=== PATIENT | male | born 1990 | race Two or more races ===

== ENCOUNTER 2020-05-06 09:14 | Emergency (ER) | payer MEDICAID, OTHER ==
[~2020-05-06] VITALS: Ht 188 cm; Wt 73.5 kg
[2020-05-06] MEDS ORDERED: SODIUM CHLORIDE 0.9% 1,000 ML IV ONE (11:02)
[2020-05-06 11:16] LABS: Urine Bacteria NONE SEEN /hpf (None Seen); Urine Blood Negative /uL (Negative); Urine Mucus FEW (None Seen); Urine Specific Gravity 1.014 (1.001-1.035); Urine WBC 6 /hpf (0 - 3)
[2020-05-06 11:40] LABS: Amphetamine Screen, Urine NEGATIVE (NEGATIVE); Barbiturate Scree,Urine NEGATIVE (NEGATIVE); Benzodiazephine Screen, Urine NEGATIVE (NEGATIVE); Cannabinoid Screen, Urine NEGATIVE (NEGATIVE); Cocaine Screen, Urine NEGATIVE (NEGATIVE); Opiate Scree,Urine NEGATIVE (NEGATIVE); Phencyclidine Screen, Urine NEGATIVE (NEGATIVE)
[2020-05-06 11:46] LABS: Basophils # (auto) 0 10 ^3/uL (0-0.2); Basophils % (auto) 0.1 % (0.0-2.0); Eosinophils # (auto) 0 10 ^3/uL (0-0.8); Eosinophils % (auto) 0.2 % (0.0-7.0); Hematocrit 49.1 % (41.0-53.0); Hemoglobin 16.8 g/dL (13.5-17.5); Lymphocytes # (auto) 0.6 10 ^3/uL (0.4-5.4); Lymphocytes % (auto) 8.7 % (10.0-50.0); Mean Corpuscular Hemoglobin 33.7 pg (28.0-32.0); Mean Corpuscular Hgb Conc. 34.2 g/dL (32.0-36.0); Mean Corpuscular Volume 98.6 fL (80.0-100.0); Monocytes # (auto) 0.5 10 ^3/uL (0-1.3); Monocytes % (auto) 8.3 % (0.0-12.0); Neutrophils # (auto) 5.4 10 ^3/uL (1.6-8.6); Neutrophils % (auto) 82.7 % (37.0-80.0); Nucleated Red Blood Cells % 0.1 %; Platelet Count (auto) 146 10^3/uL (140-450); Red Blood Cells 4.98 10^6/uL (4.5-5.90); Red Cell Distribution Width 14.3 % (11.8-14.3); White Blood Cell 6.5 10^3/uL (4.4-10.8)
[2020-05-06 12:05] LABS: Calcium 9.1 mg/dL (8.5-10.1); Magnesium 2.2 mg/dL (1.6-2.6); Potassium 3.9 mmol/L (3.5-5.1)
[2020-05-06 12:10] LABS: Bilirubin, Total 0.9 mg/dL (0.2-1.0); Total Protein 7.8 g/dL (6.4-8.2)
[2020-05-06] MEDS ORDERED: NICOTINE 7MG/24HR TOPICAL PATCH TD ONE (21:30)
[2020-05-06] MEDS ORDERED: LORazepam 0.5 MG TAB PO ONE (21:30)
[2020-05-06] MEDS ORDERED: MULTIPLE VITAMIN TAB PO ONE (22:45)
[2020-05-07] MEDS ORDERED: QUEtiapine FUMARATE 25 MG TAB PO ONE
[2020-05-07] MEDS ORDERED: LORazepam 2MG/ML-1ML VIAL ONE ×2 (01:04→03:31)
[2020-05-07] MEDS ORDERED: diphenhdrAMINE HCL 50 MG/1 ML VL ONE ×2 (01:04→03:30)
[2020-05-07] MEDS ORDERED: diphenhdrAMINE HCL 50 MG/1 ML VL IV ONE (01:15)
[2020-05-07] MEDS ORDERED: LORazepam 2MG/ML-1ML VIAL IV ONE (01:15)
[2020-05-07] MEDS ORDERED: HALOPERIDOL LACTATE 5 MG/ML INJ VIAL ONE ×2 (01:56→03:31)
[2020-05-07] MEDS ORDERED: HALOPERIDOL LACTATE 5 MG/ML INJ VIAL IM ONE ×2 (02:15→03:45)
[2020-05-07] MEDS ORDERED: LORazepam 0.5 MG TAB PO ONE (03:00)
[2020-05-07] MEDS ORDERED: LORazepam 2MG/ML-1ML VIAL IM ONE (03:45)
[2020-05-07] MEDS ORDERED: diphenhdrAMINE HCL 50 MG/1 ML VL IM ONE (03:45)
[2020-05-07] MEDS ORDERED: THIAMINE HCL 100 MG TAB PO ONE (08:00)
[2020-05-07] MEDS ORDERED: MULTIPLE VITAMIN TAB PO SCH (10:00)
[2020-05-07] MEDS ORDERED: GABAPENTIN 100 MG CAP PO ONE ×2 (14:00)
[2020-05-07] MEDS: LORazepam 0.5 MG TAB PO PRN (15:59)
[2020-05-07] MEDS: QUEtiapine FUMARATE 25 MG TAB PO SCH ×2 (17:53→22:19)
[2020-05-08] MEDS: QUEtiapine FUMARATE 25 MG TAB PO SCH ×4 (07:17→21:58)
[2020-05-08] MEDS: FOLIC ACID 1 MG TAB PO SCH (10:18)
[2020-05-08] MEDS: MULTIPLE VITAMIN TAB PO SCH (10:19)
[2020-05-08] MEDS: THIAMINE HCL 100 MG TAB PO SCH (10:19)
[2020-05-08 19:22] VITALS: BP 134/81
[2020-05-08] MEDS: LORazepam 0.5 MG TAB PO PRN ×2 (19:35→22:03)
[2020-05-08] MEDS ORDERED: NICOTINE 21MG/24 HR TOPICAL PATCH TD ONE ×2 (21:22→21:30)
[2020-05-09] MEDS: LORazepam 0.5 MG TAB PO PRN (02:23)
[2020-05-09] MEDS: QUEtiapine FUMARATE 25 MG TAB PO SCH ×3 (07:21→19:30)
[2020-05-09] MEDS: THIAMINE HCL 100 MG TAB PO SCH (09:56)
[2020-05-09] MEDS: FOLIC ACID 1 MG TAB PO SCH (09:56)
[2020-05-09] MEDS: MULTIPLE VITAMIN TAB PO SCH (09:56)
[2020-05-09] MEDS ORDERED: QUEtiapine FUMARATE 25 MG TAB ONE (16:22)
== END 2020-05-09 20:10 | disposition home or self-care (01) ==
LOC: ER 09:14 → EDBD 09:14 → ER 05-09 20:10
DX: F20.9 Schizophrenia, unspecified (principal); R45.851 Suicidal ideations; I10 Essential (primary) hypertension; F10.10 Alcohol abuse, uncomplicated; R74.8 Abnormal levels of other serum enzymes; F41.9 Anxiety disorder, unspecified; F32.9 Major depressive disorder, single episode, unspecified; F17.210 Nicotine dependence, cigarettes, uncomplicated; Y90.1 Blood alcohol level of 20-39 mg/100 ml
CPT/HCPCS: 36415; 80053; 80307; 81001; 83735; 84443; 85025; 93005; 96372; 96374; 96375; 99285; J1200; J1630; J2060; J7030; A4565

== ENCOUNTER 2022-05-26 18:57 | Emergency (ER) | payer MEDICAID ==
[~2022-05-26] VITALS: Ht 188 cm; Wt 70.3 kg
[2022-05-26 19:44] LABS: Basophils # (auto) 0 10 ^3/uL (0-0.2); Basophils % (auto) 0.2 % (0.0-2.0); Eosinophils # (auto) 0 10 ^3/uL (0-0.8); Eosinophils % (auto) 0.1 % (0.0-7.0); Hematocrit 50.2 % (41.0-53.0); Hemoglobin 16.9 g/dL (13.5-17.5); Lymphocytes # (auto) 1.3 10 ^3/uL (0.4-5.4); Lymphocytes % (auto) 16.8 % (10.0-50.0); Mean Corpuscular Hemoglobin 28.9 pg (28.0-32.0); Mean Corpuscular Hgb Conc. 33.7 g/dL (32.0-36.0); Mean Corpuscular Volume 85.5 fL (80.0-100.0); Monocytes # (auto) 0.6 10 ^3/uL (0-1.3); Monocytes % (auto) 7.3 % (0.0-12.0); Neutrophils % (auto) 75.6 % (37.0-80.0); Nucleated Red Blood Cells % 0.1 %; Red Blood Cells 5.87 10^6/uL (4.5-5.90); Red Cell Distribution Width 14.4 % (11.8-14.3); White Blood Cell 7.9 10^3/uL (4.4-10.8)
[2022-05-26 20:23] LABS: Albumin 4.3 g/dL (3.4-5.0); Calcium 10.1 mg/dL (8.5-10.1); Potassium 3.5 mmol/L (3.5-5.1)
[2022-05-26 20:25] LABS: BUN/Creatinine Ratio 5.6
[2022-05-26 20:27] LABS: Bilirubin, Total 0.8 mg/dL (0.2-1.0); Total Protein 8.8 g/dL (6.4-8.2)
[2022-05-27] MEDS ORDERED: chlordiazePOXIDE HCL 5 MG CAP PO ONE (09:30)
[2022-05-27] MEDS ORDERED: SODIUM CHLORIDE 0.9% 1,000 ML IV ONE ×2 (11:15)
[2022-05-27 12:21] VITALS: BP 119/77
[2022-05-27] MEDS ORDERED: QUET200T45 PO (12:24)
== END 2022-05-27 12:27 | disposition home or self-care (01) ==
LOC: ER 18:57
DX: R00.2 Palpitations (principal); F20.9 Schizophrenia, unspecified; F10.10 Alcohol abuse, uncomplicated; F41.9 Anxiety disorder, unspecified; F17.210 Nicotine dependence, cigarettes, uncomplicated
CPT/HCPCS: 36415; 71045; 80053; 84484; 85025; 93005; 96360; 99285; J7030

== ENCOUNTER 2025-01-05 11:29 | Emergency (ER) | payer MEDICAID ==
[~2025-01-05] VITALS: Ht 188 cm; Wt 72.0 kg
[~2025-01-05 11:29] MED LIST: QUET200T45 PO
--- NOTE | 2025-01-05 12:05 | ED.PDOC ---
Back pain HPI HPI Comments 34 y/o M, presents to the ED for CC of back pain. Patient states, that he has been experiencing bilateral chronic back pain xmonths. Patient relays, symptoms worsening with exertion, lifting, or bending. Patient comments on, pain being unbearable to the point where he is unable to do everyday activities. Patient denies dysuria, hematuria, neck pain, or headache. No other symptoms or modifying factors at this time. Chief Complaint: Back Pain Time Seen by MD: 11:50 Primary Care Provider: IFEOMA Brooks Notes: Nurses Notes, Medications, Allergies Allergies: Coded Allergies: NO KNOWN ALLERGIES (Unverified , 05/06/20) Home Meds Active Scripts Quetiapine Fumerate (QUETIAPINE FUMARATE) 200 Mg Tab, 200 MG PO BID for 10 Days, #20 TAB Prov:LLOYD DIMAS MD 05/27/22 Information Source: Patient Mode of Arrival: Ambulatory Timing: Months Duration: Since onset Location of Back pain: (B) Lower back Severity: Mild Prehospital treatment: None Onset: Spontaneous History of: None Modifying Factors: Movement, Walking; No Twisting, No Breathing, No Nothing, No Other Associated signs and symptoms: None Past Medical History PAST MEDICAL HISTORY: Anxiety, Depression, Schizophrenia Surgical History: Denies all surgeries Family History Family History: Reviewed,noncontributory to illness Social History Smoker: Cigarettes Alcohol: Heavy Drugs: Denies Drug Use Lives In: Home Constitutional: denies: chills, diaphoresis, fatigue, fever, malaise, sweats, weakness, others EENTM: denies: blurred vision, double vision, ear bleeding, ear discharge, ear drainage, ear pain, ear ringing, eye pain, eye redness, hearing loss, mouth pain, mouth swelling, nasal discharge, nose bleeding, nose congestion, nose pain, photophobia, tearing, throat pain, throat swelling, voice changes, others Respiratory: denies: cough, hemoptysis, orthopnea, SOB at rest, shortness of breath, SOB with excertion, stridor, wheezing, others Cardiovascular: denies: chest pain, dizzy spells, diaphoresis, Dyspnea on exertion, edema, irregular heart beat, left arm pain, lightheadedness, palpitations, PND, syncope, others Gastrointestinal: denies: abdomen distended, abdominal pain, blood streaked bowels, constipated, diarrhea, dysphagia, difficulty swallowing, hematemesis, melena, nausea, poor appetite, poor fluid intake, rectal bleeding, rectal pain, vomiting, others Genitourinary: denies: burning, dysuria, flank pain, frequency, hematuria, incontinence, penile discharge, penile sore, pain, testicle pain, testicle swelling, urgency, others Neurological: denies: dizziness, fainting, headache, left sided numbness, left sided weakness, numbness, paresthesia, pre-existing deficit, right sided numbness, right sided weakness, seizure, speech problems, tingling, tremors, weakness, others Musculoskeletal: reports: back pain; denies: gout, joint pain, joint swelling, muscle pain, muscle stiffness, neck pain, others Integumetry: denies: bruises, change in color, change in hair/nails, dryness, laceration, lesions, lumps, rash, wounds, others Allergic/Immunocompromised: denies: Difficulty Healing, Frequent Infections, Hives, Itching, others Hematologic/Lymphatic: denies: anemia, blood clots, easy bleeding, easy bruising, swollen glands, others Endocrine: denies: excessive hunger, excessive sweating, excessive thirst, excessive urination, flushing, intolerance to cold, intolerance to heat, unexplained weight gain, unexplained weight loss, others Psychiatric: denies: anxiety, bipolar disorder, depression, hopeless, panic disorder, schizophrenia, sleepless, suicidal, others All Other Systems: Reviewed and Negative Physical Exam General Appearance: Moderate Distress HEENT: Normal ENT Inspection, Pharynx Normal, TMs Normal Neck: Full Range of Motion, Non-Tender, Normal, Normal Inspection Respiratory: Chest Non-Tender, Lungs Clear, No Accessory Muscle Use, No Respiratory Distress, Normal Breath Sounds Cardiovascular: No Edema, No JVD, No Murmur, No Gallop, Normal Peripheral Pulses, Regular Rate/Rhythm Breast Exam: Deferred Gastrointestinal: No Organomegaly, Non Tender, No Pulsatile Mass, Normal Bowel Sounds, Soft Genitalia: Deferred Pelvic: Deferred Rectal: Deferred Extremities: No calf tenderness, Normal capillary refill, Normal inspection, Normal range of motion, Non-tender, No pedal edema Musculoskeletal : Apperance: Normal Neurologic: Alert, nuclear weapons custodian II-XII nml as Tested, No Motor Deficits, Normal Affect, Normal Mood, No Sensory Deficits Cerebellar Function: Normal Reflexes: Normal Skin: Dry, Normal Color, Warm Peripheral Pulses: 3+ Radial (R), 3+ Radial (L) Lymphatic: No Adenopathy Was a procedure done? Was a procedure done?: No Back Pain Differential Dx Differential Diagnosis: Musculoskeletal Pain, Urinary Tract Infection, Urolithiasis X-Ray, Labs, Meds, VS Vital Signs Date Time Temp Pulse Resp B/P (MAP) Pulse Ox O2 Delivery O2 Flow Rate FiO2 01/05/25 12:12 94 16 98 Room Air 01/05/25 12:12 99.1 94 16 135/96 (109) 98 99.1 01/05/25 11:50 99.1 94 16 135/96 (109) 98 Lab Test 01/05/25 12:10 Range/Units White Blood Count 8.5 4.4-10.8 10^3/uL Red Blood Count 5.29 4.5-5.90 10^6/uL Hemoglobin 18.0 H 13.5-17.5 g/dL Hematocrit 52.2 41.0-53.0 % Mean Corpuscular Volume 98.8 80.0-100.0 fL Mean Corpuscular Hemoglobin 34.1 H 28.0-32.0 pg Mean Corpuscular Hemoglobin Concent 34.5 32.0-36.0 g/dL Red Cell Distribution Width 14.0 11.8-14.3 % Platelet Count 297 140-450 10^3/uL Mean Platelet Volume 6.9 6.9-10.8 fL Neutrophils (%) (Auto) 62.8 37.0-80.0 % Lymphocytes (%) (Auto) 29.5 10.0-50.0 % Monocytes (%) (Auto) 7.1 0.0-12.0 % Eosinophils (%) (Auto) 0.4 0.0-7.0 % Basophils (%) (Auto) 0.2 0.0-2.0 % Neutrophils # (Auto) 5.3 1.6-8.6 10 ^3/uL Lymphocytes # (Auto) 2.5 0.4-5.4 10 ^3/uL Monocytes # (Auto) 0.6 0-1.3 10 ^3/uL Eosinophils # (Auto) 0 0-0.8 10 ^3/uL Basophils # (Auto) 0 0-0.2 10 ^3/uL Nucleated Red Blood Cells 0.1 % Patient alert. Complaining of back pain. Vitals stable. Answering all questions. WBC within normal limits. Hemoglobin was slightly elevated. Was told to drink plenty of fluids. X-ray does not show any acute changes. Was given prescription of Motrin. Explained to the patient. Was told to follow up with his primary care physician. Was told to come back if there is any problem. Time of 1ST Reevaluation: 12:20 Reevaluation 1ST: Improved Patient Education/Counseling: Diagnosis, Treatment Family Education/Counseling: No Family Present Additional Information I reviewed the following notes from patient's past medical encounters: 05/26/22 PALPITATIONS The following tests were ordered, and results were reviewed by me: CBC, LUMBAR SPINE 4 VIEW, LUMBAR SPINE 3 VIEW I reviewed and agreed with the following test results read by other providers: LUMBAR SPINE 4 VIEW, LUMBAR SPINE 3 VIEW I discussed treatment and results with medical personnel and: PATIENT Departure 1 Departure Time of Disposition: 12:54 Impression: Primary Impression: Musculoskeletal pain Additional Impression: Lumbar sprain Qualified Codes: S33.5XXA - Sprain of ligaments of lumbar spine, initial encounter Disposition: HOME / SELF CARE / HOMELESS Condition: Good e-Prescriptions Ibuprofen Micronized (MOTRIN TABLET) 600 Mg Tb 600 MG PO TID PRN for 3 Days, #9 TAB *Black box warning-NSAIDS can increase risk of GA & hypertension, GI irritation, ulceration, bleed, perferation. Do not use post cardiac surgery. Use short duration/lowest effective dose. Prov: LLOYD DIMAS MD 01/05/25 Discharged With: Self Critical Care Note Critical Care Time?: No Stability Stability form required: No Heart Score Heart Score: Heart Score Response (Comments) Value History N/A 0 EKG N/A 0 Age N/A 0 Risk Factors N/A 0 Troponin N/A 0 Total 0 I personally scribed for LLOYD DIMAS MD ([email or web address]) on 01/05/25 at 12:05. Electronically submitted by Lety Enriquez ([email or web address]). I personally scribed for LLOYD DIMAS MD ([email or web address]) on 01/05/25 at 12:13. Electronically submitted by Lety Enriquez ([email or web address]). I personally scribed for LLOYD DIMAS MD ([email or web address]) on 01/05/25 at 12:14. Electronically submitted by Lety Enriquez ([email or web address]). LLOYD DIMAS MD Jan 05, 2025 12:05
[2025-01-05 12:12] VITALS: BP 135/96; PULSE 94; RESP 16; TEMP 99.1; O2SAT 98
--- NOTE | 2025-01-05 12:27 | DVH ---
INDICATION: Pain TECHNIQUE: 2 views of the lumbar spine were obtained. COMPARISON: None FINDINGS: There are no acute fractures or subluxations. IMPRESSION: No acute fracture or subluxation.
[2025-01-05 12:28] LABS: Basophils # (auto) 0 10 ^3/uL (0-0.2); Basophils % (auto) 0.2 % (0.0-2.0); Eosinophils # (auto) 0 10 ^3/uL (0-0.8); Eosinophils % (auto) 0.4 % (0.0-7.0); Hematocrit 52.2 % (41.0-53.0); Lymphocytes # (auto) 2.5 10 ^3/uL (0.4-5.4); Lymphocytes % (auto) 29.5 % (10.0-50.0); Mean Corpuscular Hemoglobin 34.1 pg (28.0-32.0); Mean Corpuscular Hgb Conc. 34.5 g/dL (32.0-36.0); Mean Corpuscular Volume 98.8 fL (80.0-100.0); Monocytes # (auto) 0.6 10 ^3/uL (0-1.3); Monocytes % (auto) 7.1 % (0.0-12.0); Neutrophils # (auto) 5.3 10 ^3/uL (1.6-8.6); Neutrophils % (auto) 62.8 % (37.0-80.0); Nucleated Red Blood Cells % 0.1 %; Platelet Count (auto) 297 10^3/uL (140-450); Red Blood Cells 5.29 10^6/uL (4.5-5.90); White Blood Cell 8.5 10^3/uL (4.4-10.8)
[2025-01-05] MEDS ORDERED: IBU600T PO (12:54)
== END 2025-01-05 13:08 | disposition home or self-care (01) ==
LOC: ER 11:29
DX: S33.5XXA Sprain of ligaments of lumbar spine, initial encounter (principal); F17.210 Nicotine dependence, cigarettes, uncomplicated; G89.29 Other chronic pain; Z79.899 Other long term (current) drug therapy; X50.1XXA Overexertion from prolonged static or awkward postures, initial encounter; Y93.89 Activity, other specified; Y92.89 Other specified places as the place of occurrence of the external cause; Y99.8 Other external cause status
CPT/HCPCS: 36415; 72100; 85025